=== PATIENT | female | born 2000 | race Caucasian/White ===

== ENCOUNTER 2020-07-02 19:35 | Emergency (ER) | payer OTHER ==
[~2020-07-02] VITALS: Ht 170.1 cm; Wt 131.5 kg
[2020-07-02] MEDS ORDERED: IBUPROFEN600 MG PO (20:39)
[2020-07-02] MEDS ORDERED: CLINDAMYCIN HC300 MG PO (20:39)
== END 2020-07-02 20:47 | disposition home or self-care (01) ==
LOC: ED 19:35
DX: K08.89 Other specified disorders of teeth and supporting structures (principal); Z91.041 Radiographic dye allergy status; Z88.0 Allergy status to penicillin; Z88.8 Allergy status to other drugs, medicaments and biological substances

== ENCOUNTER 2020-08-21 13:37 | Emergency (ER) | payer OTHER ==
[~2020-08-21] VITALS: Ht 175.2 cm; Wt 127.0 kg
[~2020-08-21 13:37] MED LIST: CLINDAMYCIN HC300 MG PO; IBUPROFEN600 MG PO
[2020-08-21] MEDS ORDERED: Motrin,Rufen800 MG PO (13:56)
[2020-08-21] MEDS ORDERED: CLINDAMYCIN HC300 MG PO (13:56)
== END 2020-08-21 13:51 | disposition home or self-care (01) ==
LOC: ED 13:37
DX: K08.89 Other specified disorders of teeth and supporting structures (principal); F17.200 Nicotine dependence, unspecified, uncomplicated; Z91.041 Radiographic dye allergy status; Z88.0 Allergy status to penicillin; Z88.8 Allergy status to other drugs, medicaments and biological substances; Z79.899 Other long term (current) drug therapy; Z79.2 Long term (current) use of antibiotics

== ENCOUNTER 2023-06-13 23:30 | Emergency (ER) | payer MEDICAID ==
[~2023-06-13] VITALS: Ht 170.1 cm; Wt 131.5 kg
[~2023-06-13 23:30] MED LIST changes: +Motrin,Rufen800 MG PO
[2023-06-14] MEDS ORDERED: CLINDAMYCIN HC300 MG PO (00:51)
== END 2023-06-14 01:18 | disposition home or self-care (01) ==
LOC: ED 23:30
DX: K04.7 Periapical abscess without sinus (principal); K02.9 Dental caries, unspecified; F17.210 Nicotine dependence, cigarettes, uncomplicated; Z88.0 Allergy status to penicillin; Z91.041 Radiographic dye allergy status; Z88.8 Allergy status to other drugs, medicaments and biological substances

== ENCOUNTER 2024-12-19 11:46 | Emergency (ER) | payer MEDICAID ==
[2024-12-19] MEDS ORDERED: SODIUM CHLORIDE 0.9% 1,000 ML IV ONE (12:05)
[2024-12-19] MEDS ORDERED: Metoclopramide Hydrochloride 10 MG/2 ML VIAL IV ONE (12:05)
[2024-12-19] MEDS ORDERED: diphenhydrAMINE hydrochloride 50 MG/ML VIAL IV ONE (12:05)
[2024-12-19 12:31] LABS: BASO # 0.1 10*3/uL (0.0-0.1); BASO % 0.5 % (0.0-1.0); EOS # 0.4 10*3/uL (0.0-0.4); EOS % 3.5 % (1.0-4.0); MEAN CELL VOLUME 85.2 fl (81.0-99.0); MEAN CORPUSCULAR HGB 28.2 pg (27.0-31.0); MEAN PLATELET VOLUME 8.2 fl (9.6-12.3); MONO # 0.8 10*3/uL (0.1-1.0); MONO % 7.5 % (3.0-9.0); NEUT # 6.5 10*3/uL (2.3-7.9); NEUT % 61.7 % (47.0-73.0); NUCLEATED RED BLOOD CELL 0.0 % (0.0-0.0); NUCLEATED RED BLOOD CELL 0.0 10*3/uL (0.0-0.0); PLATELET COUNT AUTOMATED 421 10*3/uL (130-400); RED CELL DISTRI WIDTH 12.4 % (0-14.5)
[2024-12-19 12:59] LABS: BILIRUBIN Negative (Negative); BLOOD 2+ (Negative); CLARITY Cloudy (Clear); COLOR Yellow (Yellow); KETONE Negative (Negative); LEUKO ESTERASE 2+ (Negative); NITRITE Negative (Negative); PH 5.5 (4.5-8.0); SPECIFIC GRAVITY 1.010 (1.001-1.030); UROBILINOGEN 0.2 E.U./dl (0.0-1.0)
[2024-12-19 13:00] LABS: BUN 10 mg/dl (9-23)
[2024-12-19 13:01] LABS: B-hCG (QUALITATIVE) NEGATIVE (NEGATIVE)
[2024-12-19 13:22] LABS: EPITHELIAL CELLS 16-20; RBC 16-20 rbc/hpf (0-2)
[2024-12-19 13:24] LABS: BACTERIA 3+
[2024-12-19] MEDS ORDERED: SEPTDS PO (13:54)
== END 2024-12-19 13:56 | disposition home or self-care (01) ==
LOC: ED 11:46
PROVIDERS: Emergency Medicine
DX: N13.2 Hydronephrosis with renal and ureteral calculous obstruction (principal); N39.0 Urinary tract infection, site not specified; Z88.0 Allergy status to penicillin; Z88.8 Allergy status to other drugs, medicaments and biological substances